=== PATIENT | male | born 1950 | race Caucasian/White ===

== ENCOUNTER 2024-12-06 05:57 | Emergency (ER) | payer MEDICARE, SELFPAY ==
[2024-12-06 06:03] VITALS: BP 158/75; PULSE 60; RESP 16; TEMP 36.6; O2SAT 96
[2024-12-06 06:08] VITALS: BP 158/75; PULSE 60; RESP 16; TEMP 36.6; O2SAT 96
--- NOTE | 2024-12-06 06:26 | W.ED.GENAD ---
Discharge Plan Disposition Patient Disposition: Home Condition: Good Discharge Details Clinical Impression: Middle ear effusion [facility]: Gisselle Gonzales Home Meds and New Rx's Prescriptions: Continued hydrochlorothiazide 25 mg tablet 25 mg PO DAILY atenolol 25 mg tablet 25 mg PO DAILY atorvastatin [Lipitor] 40 mg tablet 40 mg PO DAILY multivitamin Tablet 1 tab PO DAILY Discharge Instructions Instructions: Serous Otitis Media (DC) Additional Instructions: Call your primary care doctor to schedule an appointment for within the next 72 hours to followup on your visit here. At that visit discuss whether you should continue your hydrochlorothiazide as that may be related to the chronic ringing in your ears. Return to the emergency department for new or worsening symptoms including fever, ear pain, vertigo, dizziness, numbness, weakness, or if you have any other concerns. Discharge Data Discharge Date/Time-TO BE ENTERED AT DEPARTURE: 12/06/24 06:33 HPI General Mode of arrival: ambulatory. Date/Time Provider Initiated Documentation: 12/06/24 05:59. Limitations to Documentation: no limitations. Information obtained by: patient. HPI Narrative: 74yo M with hx HTN, HLD, asthma, presenting for ringing in his right ear. Has tinnitus chronically in both ears. This morning woke with worsened tinnitus on the right. Also has a feeling of fullness and pressure in his right ear. No ear pain. No vertigo. No numbness or weakness. No hearing changes ([place] at baseline, uses hearing aids; has not noticed any change in his hearing). No nausea or vomiting. Not taking aspirin. Otherwise well with no fevers, chills, rash, chest pain, shortness of breath, or other concerns. Related Data Home Medications ?Medication ?Instructions ?Recorded ?Confirmed atenolol 25 mg tablet 25 mg PO DAILY 12/06/24 12/06/24 atorvastatin 40 mg tablet (Lipitor) 40 mg PO DAILY 12/06/24 12/06/24 hydrochlorothiazide 25 mg tablet 25 mg PO DAILY 12/06/24 12/06/24 multivitamin 1 tab PO DAILY 12/06/24 12/06/24 Allergies Allergy/AdvReac Type Severity Reaction Status Date / Time No Known Allergies Allergy Verified 12/06/24 06:12 General Stated Complaint: GenMedical CK: 3 Review of Systems Narrative: see HPI Exam Narrative Exam Narrative: General: Alert, well appearing, well nourished, in no acute distress. Head: Normocephalic, atraumatic Neck: Trachea midline, ?Neck supple. ENT: ?MMM.? No oropharygeal lesions or exudate. Left TM clear. Right TM bulging, non-injected. No mastoid tenderness. Cardiac: ?RRR, no murmurs appreciated Resp: No respiratory distress. Speaking in full sentences. Abd: ?Non-distended Extremities: ?No deformities.? No peripheral edema. Neuro: ? GCS 15.? PERRL.? EOMI.? Fluent speech, no dysarthria. Motor- 5/5 strength symmetric bilateral upper and lower extremities Sensation- ?Intact to light touch and symmetric multiple dermatomes including upper and lower extremities Coordination- No dysmetria on finger to nose Reflexes- 2/4 achilles & patellar, no clonus Gait/station: ?Normal stance.? No truncal ataxia. Steady gait with equal normal steps CRANIAL NERVES: II: Pupils equal and reactive, III, IV, : EOM intact, no gaze preference or deviation, no nystagmus. V: normal sensation in V1, V2, and V3 segments bilaterally VII: no asymmetry, no nasolabial fold flattening VIII: normal hearing to speech with hearing aids on place. Hearing grossly equal bilaterally IX, X: normal palatal elevation, no uvular deviation XI: 5/5 head turn and 5/5 shoulder shrug bilaterally XII: midline tongue protrusion Solares does not lateralize. Rinne normal. Course Vital Signs Vital signs: Vital Signs Temperature 36.6 C 12/06/24 06:03 Pulse 60 12/06/24 06:03 Respiratory Rate 16 12/06/24 06:03 Blood Pressure 158/75 H 12/06/24 06:03 Pulse Oximetry 96 12/06/24 06:03 Temperature 36.6 C 12/06/24 06:08 Temperature Source Oral 12/06/24 06:08 Pulse 60 12/06/24 06:08 Respiratory Rate 16 12/06/24 06:08 Respiratory Effort Normal 12/06/24 06:08 Respiratory Depth Normal 12/06/24 06:08 Respiratory Pattern Normal 12/06/24 06:08 Blood Pressure 158/75 H 12/06/24 06:08 Blood Pressure Position Sitting 12/06/24 06:08 Pulse Oximetry 96 12/06/24 06:08 Oxygen Delivery Method Room Air 12/06/24 06:08 Oxygen Flow Rate 0 12/06/24 06:03 Pain Level 1 12/06/24 06:08 Medical Decision Making 74yo M with hx HTN, HLD, asthma, presenting for ringing in his right ear. Has tinnitus chronically in both ears; this morning woke with worsened tinnitus on the right as well as feeling of fullness and pressure in his right ear with no pain. Otherwise well, no vertigo and no neurologic symptoms. Vital signs reassuring on arrival. Normal neurologic exam Right middle ear effusion on exam; no injection. Not suggestive of Meniere's, labyrinthitis, vestibular neuritis, mastoiditis, CVA/central process, or other emergent pathology. No indication for labs or CT imaging. Symptoms likely due to effusion. No pain and not erythematous; would not do antibiotics at this time. Discussed possibility of using antihistamines at home to help with symptoms; pt reports he does not tolerate these. Advised followup with PCP later this week for further care. Discharged home; discharge instructions and return precautions were reviewed with patient who verbalized understanding. All questions were answered and he is in full agreement with the plan. PFSH All Active Problems (Updated 12/06/24 @ 06:28 by Gisselle Gonzales MD) Middle ear effusion (Acute) Social History Smoking/Tobacco Use Status: Never Smoking risk assessment performed?: Yes Alcohol Intake: never Drug use: Never Substance use type: does not use Housing: apartment Do you feel safe at home: Yes Do you feel safe in your relationship?: Yes
== END 2024-12-06 06:33 | disposition home or self-care (01) ==
LOC: ER 07:07
PROVIDERS: Emergency Provider Student in an Organized Health Care Education/Training Program
DX: H65.91 Unspecified nonsuppurative otitis media, right ear (principal); I10 Essential (primary) hypertension
CPT/HCPCS: 99283; 99282